=== PATIENT | female | born 1990 | race Caucasian/White ===

== ENCOUNTER 2018-12-17 19:48 | Emergency (ER) | payer BC ==
[~2018-12-17] VITALS: Ht 152.4 cm; Wt 86.4 kg
[2018-12-17 20:12] VITALS: Ht 152.4 cm; Wt 86.4 kg
[2018-12-17] MEDS ORDERED: PRENAVITE1 TAB PO (20:12)
[2018-12-17 20:50] LABS: BASOPHILS 0.1 % (0-2); EOSINOPHILS 2.4 % (0-7); HEMATOCRIT 40.3 % (36.0-48.0); HEMOGLOBIN 13.9 g/dL (12-16); IMMATURE GRANULOCYTES 0.5 % (0-5); LYMPHOCYTES 17.8 % (15-50); MCH 32.2 pg (26.0-34.0); MCHC 34.5 g/dL (31.0-37.0); MCV 93.3 fL (80.0-100.0); MEAN PLATELET VOLUME 9.7 fL (7.4-10.4); MONOCYTES 6.3 % (2-11); NEUTROPHILS 72.9 % (40-80); PLATELET COUNT 368 10x3/uL (130-400); RBC 4.32 10x6/uL (4.00-5.40); RDW 12.4 % (11.5-14.5); WBC 14.2 10x3/uL (4.8-10.8)
[2018-12-17 20:57] LABS: HCG SERUM POSITIVE (NEGATIVE)
[2018-12-17 21:09] LABS: ALBUMIN 3.3 g/dL (3.4-5.0); ALKALINE PHOSPHATASE 97 U/L (46-116); ALT (SGPT) 64 U/L (10-68); BILIRUBIN - TOTAL 0.23 mg/dL (0.2-1.3); CALC OSMOLALITY 275 mosm/kg (275-300); CALCIUM 8.8 mg/dL (8.5-10.1); CARBON DIOXIDE 26.6 mmol/L (21.0-32.0); CHLORIDE - SERUM 102 mmol/L (98-107); CREATININE - SERUM 0.6 mg/dL (0.6-1.3); GLUCOSE 93 mg/dL (74-106); POTASSIUM - SERUM 3.1 mmol/L (3.5-5.1); SODIUM 140 mmol/L (136-145); UREA NITROGEN 5 mg/dL (7-18); eGFR NON AFRICAN AMERICAN > 90 mL/min (90-120)
[2018-12-17 21:33] LABS: HCG - QUANTITATIVE (MATERNAL) 37556 mIU/mL
[2018-12-17 22:15] LABS: APPEARANCE CLEAR (CLEAR); BILIRUBIN NEGATIVE (NEGATIVE); COLOR STRAW (YELLOW); GLUCOSE NEGATIVE (NEGATIVE); KETONE NEGATIVE (NEGATIVE); NITRITE NEGATIVE (NEGATIVE); PROTEIN TRACE mg/dL (NEGATIVE); SPECIFIC GRAVITY 1.015 (1.005-1.020); UROBILINOGEN NORMAL (NORMAL)
[2018-12-17 22:19] LABS: BACTERIA MANY /hpf (NONE SEEN); EPITHELIAL CELLS 0-5 /hpf (0-5); WHITE CELLS - URINE 0-5 /hpf (0-5)
[2018-12-17 22:20] LABS: AMORPHOUS SEDIMENT <1+ /lpf (NONE SEEN); MUCUS <1+ /lpf (NONE SEEN); YEAST OCC /hpf (NONE SEEN)
[2018-12-17 22:21] LABS: HYALINE CAST 0-5 /lpf (NONE SEEN)
[2018-12-17] MEDS ORDERED: MACROBID100 MG PO (22:46)
[2018-12-17 22:54] VITALS: BP 122/74
== END 2018-12-17 22:54 | disposition home or self-care (01) ==
LOC: D.ER 19:48
PROVIDERS: Family Medicine
DX: O23.41 Unspecified infection of urinary tract in pregnancy, first trimester (principal); Z3A.11 11 weeks gestation of pregnancy; O26.851 Spotting complicating pregnancy, first trimester

== ENCOUNTER 2019-03-17 18:23 | Outpatient (CLI) | payer BC ==
[~2019-03-17] VITALS: Ht 152.4 cm; Wt 83.2 kg
[~2019-03-17 18:23] MED LIST: MACROBID100 MG PO; PRENAVITE1 TAB PO
[2019-03-17 18:36] VITALS: BP 123/75; Ht 152.4 cm; Wt 83.2 kg
== END 2019-03-17 23:04 | disposition home or self-care (01) ==
LOC: D.ER 18:23 → D.LDO 18:23 → D.LD 18:23 → EDSTATUS 20:39 → D.LD 20:40 → D.LDO 23:04
PROVIDERS: ATTEND Emergency Medicine
DX: Z34.92 Encounter for supervision of normal pregnancy, unspecified, second trimester (principal); V89.2XXA Person injured in unspecified motor-vehicle accident, traffic, initial encounter

== ENCOUNTER → 2019-06-12 19:07 | Outpatient (CLI) | payer BC ==
[2019-03-17 18:36] VITALS: BMI 35.8
== END | disposition home or self-care (01) ==
LOC: D.LDO 19:07
PROVIDERS: ATTEND Obstetrics & Gynecology
DX: O26.893 Other specified pregnancy related conditions, third trimester (principal); Z3A.37 37 weeks gestation of pregnancy

== ENCOUNTER 2019-06-17 06:58 | Inpatient (IN) | payer BC ==
[~2019-06-17] VITALS: Ht 152.4 cm; Wt 91.4 kg
[2019-06-17 09:33] VITALS: BP 111/69; Ht 152.4 cm; Wt 91.4 kg
[2019-06-17 10:30] LABS: HEMATOCRIT 35.7 % (36.0-48.0); HEMOGLOBIN 12.1 g/dL (12-16); MCH 30.1 pg (26.0-34.0); MCHC 33.9 g/dL (31.0-37.0); MCV 88.8 fL (80.0-100.0); MEAN PLATELET VOLUME 9.7 fL (7.4-10.4); RBC 4.02 10x6/uL (4.00-5.40); RDW 15.5 % (11.5-14.5); WBC 10.3 10x3/uL (4.8-10.8)
[2019-06-18 06:09] LABS: RAPID PLASMA REAGIN Non Reactive (Non Reactive)
[2019-06-18 07:14] LABS: BASOPHILS 0.2 % (0-2); EOSINOPHILS 0.4 % (0-7); HEMATOCRIT 30.5 % (36.0-48.0); IMMATURE GRANULOCYTES 0.3 % (0-5); LYMPHOCYTES 10.9 % (15-50); MCH 29.3 pg (26.0-34.0); MCHC 32.8 g/dL (31.0-37.0); MCV 89.4 fL (80.0-100.0); MEAN PLATELET VOLUME 9.6 fL (7.4-10.4); MONOCYTES 7.9 % (2-11); NEUTROPHILS 80.3 % (40-80); PLATELET COUNT 298 10x3/uL (130-400); RBC 3.41 10x6/uL (4.00-5.40); RDW 15.5 % (11.5-14.5); WBC 14.9 10x3/uL (4.8-10.8)
[2019-06-18 08:25] VITALS: BP 94/65
[2019-06-18 11:42] VITALS: BP 97/61
[2019-06-18 22:45] VITALS: BP 106/61
[2019-06-19 07:45] VITALS: BP 117/82
[2019-06-19] MEDS ORDERED: HYDROCODON-ACE1 EAC7 PO (13:54)
[2019-06-19] MEDS ORDERED: MOTRIN600 MG PO (13:54)
[2019-06-19 19:24] VITALS: BP 98/56
[2019-06-20 11:00] VITALS: BP 112/74
[2019-06-20 14:30] VITALS: BP 111/69
[2019-06-20 15:30] VITALS: BP 102/67
[2019-06-20] MEDS ORDERED: PERCOCET 5-3251 TAB PO (18:40)
[2019-06-20] MEDS ORDERED: MOTRIN600 MG PO (18:41)
== END 2019-06-20 19:27 | disposition home or self-care (01) | DRG 806 ==
LOC: D.LDO 06:58 → D.LD 07:43
PROVIDERS: ADMIT Obstetrics & Gynecology; ATTEND Obstetrics & Gynecology
PROC: 10E0XZZ Delivery of Products of Conception, External Approach (ICD-10-PCS; principal; 2019-06-18)
PROC: 0KQM0ZZ Repair Perineum Muscle, Open Approach (ICD-10-PCS; 2019-06-18)
DX: O99.334 Smoking (tobacco) complicating childbirth (principal); O98.82 Other maternal infectious and parasitic diseases complicating childbirth; Z37.0 Single live birth; Z3A.38 38 weeks gestation of pregnancy; B95.1 Streptococcus, group B, as the cause of diseases classified elsewhere; O70.1 Second degree perineal laceration during delivery

== ENCOUNTER 2021-05-17 15:40 | Emergency (ER) | payer SELFPAY ==
[~2021-05-17] VITALS: Ht 152.4 cm; Wt 88.6 kg
[~2021-05-17 15:40] MED LIST changes: +HYDROCODON-ACE1 EAC7 PO; +MOTRIN600 MG PO; +PERCOCET 5-3251 TAB PO
[2021-05-17 15:45] VITALS: BP 105/67; Ht 152.4 cm; Wt 88.6 kg
== END 2021-05-17 18:19 | disposition home or self-care (01) ==
LOC: D.ER 15:40
DX: S61.210A Laceration without foreign body of right index finger without damage to nail, initial encounter (principal); W45.8XXA Other foreign body or object entering through skin, initial encounter; Y93.9 Activity, unspecified; Y92.9 Unspecified place or not applicable